=== PATIENT | male | born 1960 | race Caucasian/White ===

== ENCOUNTER 2019-04-15 09:01 | Day surgery (SDC) ==
[2019-04-15] MEDS: BETADINE OPTH PREP OP PRN ×3 (10:07→10:50)
[2019-04-15] MEDS: TETRACAINE 0.5% UNIT-DOSE OP PRN ×2 (10:07→10:50)
[2019-04-15] MEDS: CYCLOGYL 2% OPTH OP PRN ×3 (10:08→10:18)
[2019-04-15] MEDS ORDERED: ZOFRAN 4 MG/2 ML IVP ONE (10:19)
[2019-04-15] MEDS ORDERED: LIDOCAINE 1% 20 ML MDV ID STA (10:19)
[2019-04-15 10:26] VITALS: TEMP 98.4
[2019-04-15] MEDS: BSS WITH EPINEPHRINE OP ONE ×2 (10:58→11:07)
[2019-04-15] MEDS: DEX-MOXI-KETOR OPTH INJ 1/0.5/0.4 MG/ML IO ONE ×2 (10:58→11:07)
[2019-04-15] MEDS: LIDOCAINE 1%/PHENYLEPHRINE 1.5% BSS (SURGERY) INTRAOCULA ONE ×2 (10:58→11:07)
[2019-04-15] MEDS ORDERED: VERSED ONE (11:00)
[2019-04-15] MEDS ORDERED: ZOFRAN 4 MG/2 ML ONE (11:00)
[2019-04-15] MEDS ORDERED: SUBLIMAZE ONE (11:00)
[2019-04-15 14:43] VITALS: BP 138/79
== END 2019-04-15 12:10 | disposition home or self-care (01) ==
LOC: SURG 09:01
PROVIDERS: ATTEND Ophthalmology
DX: H25.11 Age-related nuclear cataract, right eye (principal)

== ENCOUNTER 2019-04-30 08:57 | Day surgery (SDC) ==
[2019-04-30] MEDS: TETRACAINE 0.5% UNIT-DOSE OP PRN ×2 (09:52→10:12)
[2019-04-30] MEDS: BETADINE OPTH PREP OP PRN ×2 (09:52→10:12)
[2019-04-30] MEDS: CYCLOGYL 2% OPTH OP PRN ×3 (09:53→10:03)
[2019-04-30] MEDS ORDERED: DEX-MOXI-KETOR OPTH INJ 1/0.5/0.4 MG/ML IO ONE (10:01)
[2019-04-30] MEDS ORDERED: LIDOCAINE 1%/PHENYLEPHRINE 1.5% BSS (SURGERY) INTRAOCULA ONE (10:01)
[2019-04-30] MEDS ORDERED: BSS WITH EPINEPHRINE OP ONE (10:01)
[2019-04-30] MEDS ORDERED: ZOFRAN 4 MG/2 ML IVP ONE (10:01)
[2019-04-30] MEDS ORDERED: LIDOCAINE 1% 20 ML MDV ID STA (10:01)
[2019-04-30 10:08] VITALS: TEMP 97.6
[2019-04-30] MEDS ORDERED: ZOFRAN 4 MG/2 ML ONE (10:23)
[2019-04-30] MEDS ORDERED: SUBLIMAZE ONE (10:23)
[2019-04-30] MEDS ORDERED: VERSED ONE (10:23)
[2019-04-30 13:29] VITALS: BP 155/78
== END 2019-04-30 11:45 | disposition home or self-care (01) ==
LOC: SURG 08:57
PROVIDERS: ATTEND Ophthalmology
DX: H25.12 Age-related nuclear cataract, left eye (principal)